=== PATIENT | male | born 1970 | race Caucasian/White ===

== ENCOUNTER 2020-01-02 15:27 | Emergency (ER) | payer BC, SELFPAY ==
--- NOTE | ~2020-01-02 | CT_ITS ---
EXAMINATION: CT brain wo con INDICATION: Headache COMPARISON: None TECHNIQUE: Standard unenhanced head CT. The dose-length product (DLP) was 681.00 mGy-cm. The mA was a djusted according to patient size. Iterative reconstruction technique was employed. FINDINGS: There is no intracranial hemorrhage, acute infarction, or abnormal mass lesion. The ventric les are normal. There is no abnormal mass effect or midline shift. The tinsley-white matter differentiat ion is normal. The basal cisterns are patent. The orbits are normal. The paranasal sinuses, mastoids and calvarium are normal. IMPRESSION: 1. No acute intracranial abnormality. Reviewed, dictated and finalized at location A.
[2020-01-02 15:31] VITALS: BP 135/94; PULSE 76; RESP 18; TEMP 36.3; O2SAT 100
[2020-01-02 15:47] LABS: Basophils Percent Auto 0.3 % (0.2-1.2); Eosinophils Percent Auto 0.1 % (0-4.4); Hematocrit 46.5 % (42.0-52.0); Hemoglobin 15.4 g/dL (14.0-18.0); Immature Granulocyte Absolute 0.03 K/mm3 (0.00-0.031); Immature Granulocyte Percent A 0.3 % (0-0.5); Lymphocytes Absolute Auto 1.68 K/mm3 (0.9-3.2); Mean Corpuscular HGB Conc 33.1 g/dl (32-36); Mean Corpuscular Hemoglobin 26.6 pg (26-34); Mean Corpuscular Volume 80.3 fl (80-100); Mean Platelet Volume 9.9 fl (7.4-10.4); Monocytes Absolute Auto 0.4 K/mm3 (0.1-0.6); Monocytes Percent Auto 4.5 % (2.6-8.5); Neutrophils Absolute Auto 6.7 K/mm3 (1.3-6.7); Neutrophils Percent Auto 75.8 % (45.5-73.1); Platelet Count Result 285 k/mm3 (150-375); Red Blood Count 5.79 M/mm3 (4.6-6.20); Red Cell Distribution Width 14.1 % (11.5-14.5); White Blood Count 8.8 K/mm3 (4.5-10.0)
[2020-01-02 15:57] LABS: Alanine Aminotransferase 33 U/L (4-50); Albumin Level 5.2 g/dL (3.5-5.1); Alkaline Phosphatase 52 U/L (38-126); Aspartate Amino Transferase 32 U/L (17-59); Bilirubin,Total 0.7 mg/dL (0.2-1.3); Blood Urea Nitrogen 14 mg/dL (9-20); Calcium 9.8 mg/dL (8.4-10.2); Carbon Dioxide 28 mmol/L (22-30); Chloride 103 mmol/L (98-107); Estimated CRCL calculation 97 ml/min; Estimated Glomerular Filt Rate > 60; Glucose 113 mg/dL (75-110); Lipase 131 U/L (23-300); Potassium 3.9 mmol/L (3.4-5.0); Sodium 138 mmol/L (137-145)
[2020-01-02 19:46] VITALS: BP 129/87; PULSE 72; RESP 18; O2SAT 100
--- NOTE | 2020-01-02 20:08 | ED.HA ---
HPI - Headache General Chief Complaint: Headache <NATASHA Vital Last Filed: 01/02/20 20:12> Stated Complaint: headache/ nausea <NATASHA Vital Last Filed: 01/02/20 20:12> Time Seen by Provider: 01/02/20 19:40 <NATASHA Vital Last Filed: 01/02/20 20:12> Source: patient <NATASHA Vital Last Filed: 01/02/20 20:12> Mode of arrival: ambulatory <NATASHA Vital Last Filed: 01/02/20 20:12> Limitations: other (Hearing impairment) <NATASHA Vital Last Filed: 01/02/20 20:12> History of Present Illness HPI Narrative: This is a 49-year-old male that presents the emergency department for headache since this morning. Reports he took an anti-inflammatory this morning with some relief. Has continued to have a headache since. Has not taken any other medication for this. Reports photosensitivity and nausea. Denies fever, vision changes, vomiting, numbness or weakness. <NATASHA Vital Last Filed: 01/02/20 20:12> Related Data Home Medications: Home Medications Medication Instructions Recorded Confirmed No Home Medications 01/02/20 01/02/20 <NATASHA Vital Last Filed: 01/02/20 20:12> Allergies/Adverse Reactions: Allergies Allergy/AdvReac Type Severity Reaction Status Date / Time No Known Allergies Allergy Unknown Verified 01/02/20 15:28 <NATASHA Vital Last Filed: 01/02/20 20:12> Review of Systems Review of Systems: Narrative: CONSTITUTIONAL: Denies fever EYES: Denies visual changes GASTROINTESTINAL: Reports nausea. Denies vomiting NEUROLOGIC: Reports headache. Denies numbness, or weakness. <NATASHA Vital Last Filed: 01/02/20 20:12> All systems reviewed & are unremarkable except as noted in HPI and below <NATASHA Vital Last Filed: 06/29/20 20:12> PMFSH Past Medical History Medical History: Medical History (Updated 01/02/20 @ 21:12 by Emily Epperson MD) History of hearing loss <Aminta Cam PA-C - Last Filed: 01/02/20 20:12> Family History Family History: Family History (Updated 10/07/18 @ 09:58 by DOCTOR UNKNOWN) Mother Family history of malignant neoplasm Grandparent Family history of coronary artery disease <Aminta Cam PA-C - Last Filed: 01/02/20 20:12> Social History Social History: Social History (Updated 01/02/20 @ 20:10 by Aminta Cam PA-C) Smoking status: Former smoker Alcohol intake: never Substance use: never Gender identity (if verbalized by the patient): Male <Aminta Cam PA-C - Last Filed: 01/02/20 20:12> Exam Narrative: Exam Narrative: GENERAL: Well-appearing, well-nourished, and in no acute distress. HEAD: Normocephalic, atraumatic. EYES: PERRLA and EOMI. ENT: Nares clear, no rhinorrhea or epistaxis. Mucous membranes moist. Oropharynx without tonsillar hypertrophy exudate or other lesions. Bilateral TMs pearly tinsley non-bulging NECK: Supple. No adenopathy or masses. CHEST: Clear to auscultation. No respiratory distress. No wheezes rales or rhonchi HEART: Regular rate and rhythm. No murmur heard. Normal peripheral pulses. EXTREMITIES: Normal range of motion. No edema. SKIN: Warm, dry, no rash. NEURO: No focal deficits. Alert and oriented x3. 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 [id number] with the patient for 15 minutes. His headache started at 3:30 in the morning. His gave him a blue pill. He went to work anyway. The headache became worse. 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 The headache was 10 out of 10 at worst. Now it is 4 out of 10, and he is ready to go home. He received IV fluids and IV Tylenol. Emily Epperson <Emily Epperson MD - Last Filed: 01/02/20 21:15> Vital Signs Vital signs: Vital Signs
[2020-01-02] MEDS: KETOROLAC 30 MG/ML VIAL (*BKC) IV PUSH (20:19)
[2020-01-02] MEDS: SODIUM CHLORIDE 0.9% IV 1,000 ML 999 ML IV CONT (20:19)
[2020-01-02] MEDS: METOCLOPRAMIDE HCL INJ 10 MG/2 ML VIAL IV PUSH (20:20)
[2020-01-02 21:24] VITALS: BP 122/79; PULSE 69; RESP 18; O2SAT 99
== END 2020-01-02 21:25 | disposition home or self-care (01) ==
PROVIDERS: Emergency Medicine; Emergency Provider Emergency Medicine
DX: R51 Headache (principal); Z87.891 Personal history of nicotine dependence; H91.90 Unspecified hearing loss, unspecified ear
CPT/HCPCS: 36415; 70450; 80053; 83690; 85025; 96365; 96375; 99284; J0131; J1200; J1885; J2765; J7030

== ENCOUNTER 2020-04-25 10:21 | Outpatient (CLI) | payer BC, MEDICAID, SELFPAY | END 2020-04-25 10:22 | disposition home or self-care (01) | PROVIDERS: Visit Provider Clinical Nurse Specialist | DX: H90.3 Sensorineural hearing loss, bilateral (principal) | CPT/HCPCS: 92557; 92567 ==

== ENCOUNTER 2020-06-13 07:57 | Outpatient (RCR) | payer MEDICAID, SELFPAY | END 2020-06-13 23:59 | disposition home or self-care (01) | LOC: ANHAUDIO 07:57 | PROVIDERS: PCP Clinical Nurse Specialist; Visit Provider Clinical Nurse Specialist | DX: Z46.1 Encounter for fitting and adjustment of hearing aid (principal) | CPT/HCPCS: V5160; V5261 ==

== ENCOUNTER 2020-11-30 19:53 | Emergency (ER) | payer MEDICAID, SELFPAY ==
--- NOTE | ~2020-11-30 | CT_ITS ---
EXAMINATION: CT BRAIN W/O DATE: 11/30/2020 20:58 INDICATION: Altered mental status TECHNIQUE: Computed tomography (CT) of the head was performed without intravenous contrast. The dose- length product was 681.00 mGy-cm. Automated exposure control and iterative reconstruction technique w ere employed. COMPARISON: No prior studies for comparison. FINDINGS: Normal brain parenchymal volume for age. Normal tinsley-white differentiation. No acute intrac ranial hemorrhage, infarction, mass or mass effect. No ventriculomegaly or midline shift. Midline sagittal images demonstrate a normal corpus callosum, c raniovertebral junction and sella turcica. Basilar cisterns are patent. Paranasal sinuses and mastoids are pneumatized. No depressed skull fractures. IMPRESSION: 1. No acute intracranial abnormality. Reviewed, dictated and finalized at location A.
[2020-11-30 19:59] VITALS: BP 137/79; PULSE 86; RESP 20; TEMP 37; O2SAT 98
[2020-11-30 20:46] LABS: Basophils Percent Auto 0.3 % (0.2-1.2); Eosinophils Absolute Auto 0.1 K/mm3 (0-0.3); Eosinophils Percent Auto 0.9 % (0-4.4); Hemoglobin 15.1 g/dL (14.0-18.0); Immature Granulocyte Absolute 0.01 K/mm3 (0.00-0.031); Immature Granulocyte Percent A 0.2 % (0-0.5); Lymphocytes Absolute Auto 2.45 K/mm3 (0.9-3.2); Lymphocytes Percent Auto 38.3 % (18.3-44.2); Mean Corpuscular HGB Conc 32.8 g/dl (32-36); Mean Corpuscular Hemoglobin 26.9 pg (26-34); Mean Corpuscular Volume 81.9 fl (80-100); Mean Platelet Volume 9.7 fl (7.4-10.4); Monocytes Absolute Auto 0.7 K/mm3 (0.1-0.6); Monocytes Percent Auto 10.5 % (2.6-8.5); Neutrophils Absolute Auto 3.2 K/mm3 (1.3-6.7); Neutrophils Percent Auto 49.8 % (45.5-73.1); Platelet Count Result 284 k/mm3 (150-375); Red Blood Count 5.62 M/mm3 (4.6-6.20); Red Cell Distribution Width 13.8 % (11.5-14.5); White Blood Count 6.4 K/mm3 (4.5-10.0)
[2020-11-30 21:01] LABS: Ethanol < 10 mg/dL (<10)
[2020-11-30 21:02] LABS: Alanine Aminotransferase 30 U/L (4-50); Albumin Level 4.6 g/dL (3.5-5.1); Alkaline Phosphatase 42 U/L (38-126); Anion Gap 6 mmol/L (8-16); Aspartate Amino Transferase 39 U/L (17-59); Bilirubin,Total 0.5 mg/dL (0.2-1.3); Blood Urea Nitrogen 17 mg/dL (9-20); Calcium 9.6 mg/dL (8.4-10.2); Carbon Dioxide 31 mmol/L (22-30); Chloride 104 mmol/L (98-107); Estimated CRCL calculation 63 ml/min; Estimated Glomerular Filt Rate > 60; Glucose 105 mg/dL (75-110); Potassium 3.8 mmol/L (3.4-5.0); Sodium 141 mmol/L (137-145)
[2020-11-30 21:20] LABS: Add Urine Microscopic? YES; Appearance Urine Clear (Clear); Bilirubin Urine Negative (Negative); Blood Urine Negative (Negative); Color Urine Yellow (Yellow); Glucose Urine UA Negative (Negative); Ketones Urine Negative (Negative); Leukocyte Esterase Ur Negative LEU/UL (Negative); Mucus Urine Rare /lpf; Nitrate Urine Negative (Negative); Protein Urine Negative (Negative); RBC Urine 0-2 /hpf (0-2); Specific Grav Ur 1.016 (1.001-1.035); WBC Urine 0-3 /hpf
[2020-11-30 21:32] LABS: Thyroid Stimulating Hormone 0.539 uIU/mL (0.465-4.680)
--- NOTE | 2020-11-30 21:32 | ED.PSYCH ---
HPI - Psych General Chief Complaint: Psychiatric Symptoms Stated Complaint: ams, rule out si Time Seen by Provider: 11/30/20 20:01 History of Present Illness HPI Narrative: Patient is a 50-year-old male who presents ER with concerns for psychiatric issues. Patient's called EMS for transport. She reports that he has been sleeping last over the last few days. He has been speaking about things that she feels do not make sense. He has been paranoid about people following him. She reports she has been telling stories about how his mother had and then his stepfather committed suicide. Patient denies any suicidal ideation or homicidal ideation currently. Denies that he is hearing voices or seeing things that are not actually there. Denies drug use. He does have a notebook that is filled with random scribbles of scripture. Related Data Home Medications Medication Instructions Recorded Confirmed No Home Medications 01/02/20 01/02/20 Allergies Allergy/AdvReac Type Severity Reaction Status Date / Time No Known Allergies Allergy Unknown Verified 01/02/20 15:28 Review of Systems Review of Systems: All systems reviewed & are unremarkable except as noted in HPI and below Constitutional: Constitutional: Denies chills, Denies fever(s) and Denies weakness ENT: Denies nasal congestion and Denies sore throat Cardiovascular: Cardiovascular: Denies chest pain, Denies rapid heart rate and Denies radiating jaw, neck or arm pain Respiratory: Respiratory: Denies cough and Denies dyspnea Psychiatric: Psychiatric: Denies anxiety, Denies depression and Denies homicidal ideation PMFSH Past Medical History Medical History (Updated 11/30/20 @ 22:35 by Amaury Espinosa MD) History of hearing loss Surgical History Surgical History (Updated 11/30/20 @ 21:36 by Amaury Espinosa MD) No pertinent past surgical history Family History Family History (Updated 10/07/18 @ 09:58 by DOCTOR UNKNOWN) Mother Family history of malignant neoplasm Grandparent Family history of coronary artery disease Social History Social History (Updated 01/02/20 @ 20:10 by Aminta Cam PA-C) Smoking status: Former smoker Alcohol intake: never Substance use: never Gender identity (if verbalized by the patient): Male Exam Narrative: Exam Narrative: GENERAL: Well-appearing, well-nourished, and in no acute distress. HEAD: Normocephalic, atraumatic. EYES: PERRL and EOMI. CHEST: Clear to auscultation. No respiratory distress. HEART: Regular rate and rhythm. Normal peripheral pulses. ABDOMEN: Soft, nontender, nondistended. EXTREMITIES: Normal range of motion. No edema. SKIN: Warm, dry, no rash. NEURO: Alert and oriented x3. PSYCH: Normal mood and affect. Does not seem to be responding to internal stimuli at this moment. No SI/HI. Course Course Emergency Course: Patient has been calm and cooperative. He is not endorsing any suicidal ideation or homicidal ideation. He is not displayed any behavior that would indicate that he is a risk to himself or others. He has not been acting paranoid. Crisis has been contacted and states they are not coming out patient's who are not SI/HI or not considered a possible danger to themselves/others. Vital Signs Vital signs: Vital Signs Temperature 98.6 F 11/30/20 19:59 Pulse Rate 86 11/30/20 19:59 Respiratory Rate 20 11/30/20 19:59 Blood Pressure 137/79 11/30/20 19:59 Pulse Oximetry 98 11/30/20 19:59 Temperature 98.6 F 11/30/20 19:59 Pulse Rate 86 11/30/20 19:59 Respiratory Rate 20 11/30/20 19:59 Blood Pressure 137/79 11/30/20 19:59 Pulse Oximetry 98 11/30/20 19:59 MDM - Psych Lab Data Result diagrams: 11/30/20 20:40 11/30/20 20:40 Labs: Lab Results 11/30/20 11/30/20 11/30/20 Range/Units 20:40 20:40 20:40 WBC 6.4 (4.5-10.0) K/mm3 RBC 5.62 (4.6-6.20) M/mm3 Hgb 15.1 (14.0-18.0) g/dL Hc
[2020-11-30 21:55] LABS: Amphetamine Screen Urine Negative (Negative); Barbiturate Screen Urine Negative (Negative); Benzodiazepines Screen Urine Negative (Negative); Cannabinoid Screen Urine Negative (Negative); Cocaine Screen Urine Negative (Negative); Methadone Screen Urine Negative (Negative); Opiate Screen Urine Negative (Negative); Phencyclidine Screen Urine Negative (Negative)
--- NOTE | 2020-11-30 22:54 | PC.NURSE ---
spoke with Nelly from crisis, she states with pt denying SI/HI there would be slim to none chance of having a in person interventionalist come to the hospital.
--- NOTE | 2020-11-30 23:01 | PC.NURSE ---
2300 patient's called to get update on patient. Informed her that the patient is up for discharge and has been medically cleared.
[2020-11-30 23:15] VITALS: BP 135/96; PULSE 96; RESP 14; O2SAT 98
== END 2020-11-30 23:13 | disposition home or self-care (01) ==
PROVIDERS: Emergency Provider Emergency Medicine; PCP Internal Medicine
DX: F99 Mental disorder, not otherwise specified (principal); Z87.891 Personal history of nicotine dependence
CPT/HCPCS: 36415; 70450; 80053; 80307; 81001; 84443; 85025; 99284

== ENCOUNTER 2021-01-02 12:38 | Outpatient (RCR) | payer MEDICAID, SELFPAY | END 2021-01-02 23:59 | disposition home or self-care (01) | LOC: ANHAUDIO 12:38 | PROVIDERS: PCP Internal Medicine; Visit Provider Internal Medicine | DX: Z46.1 Encounter for fitting and adjustment of hearing aid (principal) | CPT/HCPCS: 99199 ==

== ENCOUNTER 2021-05-04 11:54 | Outpatient (CLI) | payer BC, SELFPAY ==
--- NOTE | ~2021-05-04 | MR_ITS ---
EXAMINATION: MR brain/brain stem wo/w con EXAM DATE: 05/04/2021 13:04 INDICATION: Z71.1 - Person with feared health complaint in whom no di... Headache, neurological defic its, hearing difficulties. TECHNIQUE: Magnetic resonance imaging (MRI) of the brain/brain stem obtained without contrast. Sagit carrie T1, axial diffusion, gradient echo (T2*), T1, T2, FLAIR sequences obtained. Patient was then inj ected with 10 cc intravenous Multihance contrast. Axial and coronal postcontrast T1 weighted sequence s obtained. Correlation is made to head CT 11/30/2020. FINDINGS: Nodule of soft tissue incompletely imaged within the superficial lobe of the left parotid g land, differential diagnosis including primary parotid neoplasm and less likely pathologically enlarg ed intraparotid lymph node. This demonstrates enhancement, measures up to about 1.5 cm. No other kristin ons of abnormal enhancement. There are no areas of restricted diffusion to suggest acute infarction. There is no acute hemorrhage seen on the T2*, a hemosiderin sensitive sequence. No intraparenchymal brain mass. The ventricles a re normal in size. There are no extra-axial collections. Flow voids are seen in the cerebral arteri es on the T2-weighted sequences consistent with their expected patency. The orbits are unremarkable. Soft tissue is unremarkable. Mild right maxillary sinus mucoperiosteal thickening. IMPRESSION: 1. 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 Con affirmative action officer soft tissue neck ultrasound, CT neck with contrast, and/or ENT consult. 2. Otherwise unremarkable brain MRI. Reviewed, dictated and finalized at location A. IMPRESSION: 1. Incidental left parotid mass, more likely primary parotid neoplasm than enl arged lymph node. Consider soft tissue neck ultrasound, CT neck with contrast, and/or ENT consult. 2. Otherwise unremarkable brain MRI.
[2021-05-04 12:44] LABS: Estimated Glomerular Filt Rate > 60
== END 2021-05-04 11:55 | disposition home or self-care (01) ==
LOC: ANHIMG 12:12
PROVIDERS: PCP Internal Medicine; Visit Provider Internal Medicine
DX: R51.9 Headache, unspecified (principal); Z71.1 Person with feared health complaint in whom no diagnosis is made; R93.0 Abnormal findings on diagnostic imaging of skull and head, not elsewhere classified
CPT/HCPCS: 70553; A9577

== ENCOUNTER 2021-09-13 12:54 | Outpatient (RCR) | payer BC, SELFPAY | END 2021-09-13 23:59 | disposition home or self-care (01) | LOC: ANHAUDIO 12:54 | PROVIDERS: PCP Internal Medicine; Visit Provider Internal Medicine | DX: Z46.1 Encounter for fitting and adjustment of hearing aid (principal) | CPT/HCPCS: 99199 ==

== ENCOUNTER 2023-03-31 07:10 | Outpatient (RCR) | payer BC, SELFPAY | END 2023-03-31 23:59 | disposition home or self-care (01) | LOC: ANHAUDIO 07:10 | PROVIDERS: PCP Internal Medicine; Visit Provider Internal Medicine | DX: Z46.1 Encounter for fitting and adjustment of hearing aid (principal) | CPT/HCPCS: 99199 ==

== ENCOUNTER 2023-12-29 16:37 | Emergency (ER) | payer BC, SELFPAY ==
[2023-12-29 16:37] VITALS: BP 121/80; PULSE 76; RESP 16; O2SAT 99
[2023-12-29 17:01] VITALS: TEMP 36.7
[2023-12-29 17:35] LABS: Basophils Absolute Auto 0.1 K/mm3 (0.0-0.1); Basophils Percent Auto 0.7 % (0.2-1.2); Eosinophils Absolute Auto 0.1 K/mm3 (0-0.3); Eosinophils Percent Auto 0.7 % (0-4.4); Hematocrit 50.2 % (42.0-52.0); Hemoglobin 16.2 g/dL (14.0-18.0); Immature Granulocyte Absolute 0.03 K/mm3 (0.00-0.031); Immature Granulocyte Percent A 0.4 % (0-0.5); Lymphocytes Absolute Auto 2.71 K/mm3 (0.9-3.2); Lymphocytes Percent Auto 31.9 % (18.3-44.2); Mean Corpuscular HGB Conc 32.3 g/dl (32-36); Mean Corpuscular Hemoglobin 27.2 pg (26-34); Mean Corpuscular Volume 84.4 fl (80-100); Mean Platelet Volume 9.9 fl (7.4-10.4); Monocytes Absolute Auto 0.7 K/mm3 (0.1-0.6); Monocytes Percent Auto 7.9 % (2.6-8.5); Neutrophils Percent Auto 58.4 % (45.5-73.1); Platelet Count Result 302 k/mm3 (150-375); Red Blood Count 5.95 M/mm3 (4.6-6.20); Red Cell Distribution Width 14.6 % (11.5-14.5); White Blood Count 8.5 K/mm3 (4.5-10.0)
--- NOTE | 2023-12-29 17:38 | ED.GENADULT ---
HPI - General Adult General Chief complaint: Unspecified <Anamaria Caraballo MD - Last Filed: 12/30/23 11:49> Stated complaint: Psych, Fail to Thrive <Anamaria Caraballo MD - Last Filed: 12/30/23 11:49> Time Seen by Provider: 12/29/23 16:52 <Anamaria Caraballo MD - Last Filed: 12/30/23 11:49> History of Present Illness HPI narrative: Patient is a 53 year old male with history of depression, bipolar, schizophrenia here complaining of feeling very depressed. He notes he has struggled with depression for a long time, is compliant with his medications. He notes he feels more and more depressed despite taking his medications. He states that he has not been taking care of himself, not eating well. He denies SI or HI, denies attempts at self harm. Patient does note history of prior psychiatric admission, unsure of when this was, felt similar to this at that time. Despite patient saying he is taking his medications he did come in with involuntary paperwork stating he does not take his medications and is not caring for himself. <Anamaria Caraballo MD - Last Filed: 12/30/23 11:49> Related Data Home medications: Home Medications Medication Instructions Recorded Confirmed bupropion HCl 300 mg 24 hr tablet, 300 mg PO QAM 12/29/23 12/29/23 extended release quetiapine 50 mg tablet 100 mg PO HS PRN Insomnia 12/29/23 12/29/23 sertraline 50 mg tablet 50 mg PO DAILY 12/29/23 12/29/23 <Anamaria Caraballo MD - Last Filed: 12/30/23 11:49> Allergies/adverse reactions: Allergies Allergy/AdvReac Type Severity Reaction Status Date / Time No Known Allergies Allergy Unknown Verified 12/29/23 16:46 <Anamaria Caraballo MD - Last Filed: 12/30/23 11:49> Review of Systems Review of Systems: All systems reviewed & are unremarkable except as noted in HPI and below <Anamaria Caraballo MD - Last Filed: 12/30/23 11:49> PMFSH Past Medical History Medical History: Medical History (Updated 12/30/23 @ 04:23 by Tali Miller MD) History of hearing loss Parotid mass <Anamaria Caraballo MD - Last Filed: 12/30/23 11:49> Surgical History Surgical History: Surgical History No pertinent past surgical history <Anamaria Caraballo MD - Last Filed: 12/30/23 11:49> Family History Family History: Family History Mother Family history of malignant neoplasm Grandparent Family history of coronary artery disease <Anamaria Caraballo MD - Last Filed: 12/30/23 11:49> Social History Social History: Social History Smoking status: Former smoker Alcohol intake: never Substance use: never Substance use type: does not use Gender identity (if verbalized by the patient): Male <Anamaria Caraballo MD - Last Filed: 12/30/23 11:49> Exam Narrative: GENERAL: Well-appearing, well-nourished, and in no acute distress. HEAD: Normocephalic, atraumatic. EYES: PERRLA and EOMI. ENT: Nares clear. Mucous membranes moist. NECK: Supple. CHEST: Clear to auscultation. No respiratory distress. HEART: Regular rate and rhythm. Normal peripheral pulses. ABDOMEN: Soft, nontender, nondistended. EXTREMITIES: Normal range of motion. No edema. SKIN: Warm, dry, no rash. NEURO: No focal deficits. Alert and oriented x3. PSYCH: Flat affect, withdrawn. <Anamaria Caraballo MD - Last Filed: 12/30/23 11:49> Course Course Emergency Course: Chart review performed. Patient here with worsening depressions. Told nursing he has not been taking his pills as prescribed. Patient seen evaluated, nontoxic appearing, alert, oriented, flat affect and withdrawn. He seems to have decompensated in terms of his mental health. He does follow with a psychiatrist of chest not. He denies any physical symptoms. Psychiatric orders have been placed, anticipate discussion with [place] services. Patient agreeable to workup an
[2023-12-29 17:46] LABS: Acetaminophen < 10 ug/mL (10-30); Ethanol < 10 mg/dL (<10); Salicylate < 1.0 mg/dL (2-20)
[2023-12-29 17:51] LABS: Alanine Aminotransferase 35 U/L (6-50); Albumin Level 4.5 g/dL (3.5-5.1); Alkaline Phosphatase 61 U/L (38-126); Anion Gap 9 mmol/L (4-12); Aspartate Amino Transferase 29 U/L (17-59); Bilirubin,Total 0.6 mg/dL (0.2-1.3); Blood Urea Nitrogen 22 mg/dL (9-20); Calcium 9.4 mg/dL (8.4-10.2); Carbon Dioxide 24 mmol/L (22-30); Chloride 108 mmol/L (98-107); Estimated CRCL calculation 73 ml/min; Estimated Glomerular Filt Rate > 60; Glucose 114 mg/dL (65-110); Potassium 3.8 mmol/L (3.4-5.0); Sodium 141 mmol/L (137-145)
[2023-12-29 18:07] LABS: Influenza A QL RT-PCR Negative (Negative); Influenza B QL RT-PCR Negative (Negative); RSV RNA, RT-PCR Negative (Negative); SARS-CoV-2 RNA PCR Negative (Negative)
--- NOTE | 2023-12-29 18:07 | PC.NURSE ---
Patient has refused to urinate after multiple requests. patient states that he just can not go patient withdrawn with flat affect. now will be straight cathing to get urine.
[2023-12-29 18:26] LABS: Appearance Urine Clear (Clear); Bilirubin Urine Negative (Negative); Blood Urine Negative (Negative); Color Urine Yellow (Yellow); Glucose Urine UA Negative (Negative); Ketones Urine Negative (Negative); Leukocyte Esterase Ur Negative LEU/UL (Negative); Nitrate Urine Negative (Negative); Protein Urine Negative (Negative); Specific Grav Ur 1.025 (1.001-1.035)
[2023-12-29 18:41] LABS: Amphetamine Screen Urine Negative (Negative); Barbiturate Screen Urine Negative (Negative); Benzodiazepines Screen Urine Negative (Negative); Cannabinoid Screen Urine Negative (Negative); Cocaine Screen Urine Negative (Negative); Methadone Screen Urine Negative (Negative); Opiate Screen Urine Negative (Negative); Phencyclidine Screen Urine Negative (Negative)
[2023-12-29 18:43] LABS: Add Urine Microscopic? NO
--- NOTE | 2023-12-29 18:51 | PC.NURSE ---
phone call made to Es at [facility]. left voicemail to call back to [facility] as soon as she can.
--- NOTE | 2023-12-29 22:21 | PC.NURSE ---
1918 - spoke with Es with [facility] about the patient being medically cleared for psychiatric evaluation 2215- spoke with Efe with [facility] about request of family to place the patient at [facility]. Efe has talked to Jamison at [facility] Intake, who requests the chart to be faxed over. contact information intake - phone number : [phone]
[2023-12-29 22:47] VITALS: BP 103/72; PULSE 70; RESP 14; TEMP 36.3; O2SAT 98
--- NOTE | 2023-12-29 23:12 | PC.NURSE ---
chart faxed to [facility].
--- NOTE | 2023-12-30 00:26 | PC.NURSE ---
MATT Mercedesia contacted to ask questions about patient status, update.
--- NOTE | 2023-12-30 01:20 | PC.NURSE ---
[place] [address] Adilson Pritchard Nurse to Nurse phone number for report [phone] - they will give you bed assignment [phone] Michelle with questions
--- NOTE | 2023-12-30 01:32 | PC.NURSE ---
Thalia @ [facility] [phone] called to update this er staff of patient information/ room 102 bed RN to RN report Unspecified Depressive Disorder - Per Dr. Adilson Pritchard
--- NOTE | 2023-12-30 01:48 | PC.NURSE ---
nurse to nurse to miri @ [facility]
[2023-12-30 04:25] VITALS: BP 134/78; PULSE 68; RESP 16; O2SAT 98
== END 2023-12-30 05:08 ==
PROVIDERS: Emergency Provider Student in an Organized Health Care Education/Training Program; PCP Internal Medicine
DX: F32.A Depression, unspecified (principal); Z20.822 Contact with and (suspected) exposure to COVID-19; Z79.899 Other long term (current) drug therapy; Z87.891 Personal history of nicotine dependence
CPT/HCPCS: 36415; 80053; 80307; 81003; 84443; 85025; 87637; 99285

== ENCOUNTER 2025-04-19 10:16 | Emergency (ER) | payer BC, SELFPAY ==
--- OUTSIDE RECORDS SUMMARY | 2024-11-29 10:20 | XMS_ITS ---
Author Organization [facility] Address [address] [place] [address] Care Team Providers Care Attendant Honor Bar Name Role Phone Shauna Muhammad Primary Care Provider Nicolette Link [phone] REASON FOR VISIT transfer from [facility] 40 mins Social History Sex Assigned At : Social History Observation Description Sex Assigned At Male Encounters Encounter Location Date Provider Diagnosis [address] [place] [address] 11/29/2024 Nicolette Link Plan Of Treatment No Information Progress Notes * Antoni ROGERSDOB:1970 ( 54 yo M)Acc No.[id number]:11/29/2024 UNLOCKED PROGRESS NOTE Patient: Antoni MOYA Provider: Gena Link, MSN, MANAGER BUSINESS BANKING, DAIRY BACTERIOLOGIST-C :1970 A ge:54 Y S ex:Male Date:11/29/2024 [id number] Pcp:Shauna Muhammad Subjective: * Chief Complaints: * 1 . [facility] from [facility] 40 mins. * Medical History: Objective: * Vitals: Assessment: Plan: * Treatment: * * Electronic signature of Dev Link , [id number] on 04/19/2025 at 12:00 PM CDT Sign off status: Pending * Provider: Gena Link, СВЕТЛАНА, MANAGER BUSINESS BANKING, DAIRY BACTERIOLOGIST-C Date: 0 11/29/2024 Generated for Toni flores/Glenny/Misty on: 1 12:00 PM CDT
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
[2025-04-19 10:24] VITALS: BP 101/69; PULSE 76; RESP 16; TEMP 36.6; O2SAT 99
[2025-04-19 10:54] LABS: Hematocrit 49.8 % (42.0-52.0); Hemoglobin 16.3 g/dL (14.0-18.0); Immature Granulocyte Percent A 0.3 % (0-0.5); Lymphocytes Absolute Auto 1.92 K/mm3 (0.9-3.2); Mean Corpuscular HGB Conc 32.7 g/dl (32-36); Mean Corpuscular Hemoglobin 26.7 pg (26-34); Mean Corpuscular Volume 81.6 fl (80-100); Nucleated Red Blood Cells Absolute Auto 0.000 K/mm3 (0.0-0.012); Nucleated Red Blood Cells Perc 0.0 % (0.0-0.2); Platelet Count Result 267 k/mm3 (150-375); Red Blood Count 6.10 M/mm3 (4.6-6.20); White Blood Count 6.3 K/mm3 (4.5-10.0)
[2025-04-19 11:08] LABS: Acetaminophen < 10 ug/mL (10-30); Salicylate < 1.0 mg/dL (2-20)
[2025-04-19 11:30] LABS: Influenza A QL RT-PCR Negative (Negative); Influenza B QL RT-PCR Negative (Negative); RSV RNA, RT-PCR Negative (Negative); SARS-CoV-2 RNA PCR Negative (Negative)
[2025-04-19 11:35] LABS: Thyroid Stimulating Hormone Reflex 0.775 uIU/mL (0.465-4.68)
[2025-04-19 11:35] LABS: Alanine Aminotransferase 50 U/L (6-50); Albumin Level 4.7 g/dL (3.5-5.1); Alkaline Phosphatase 57 U/L (38-126); Anion Gap 9 mmol/L (4-12); Aspartate Amino Transferase 34 U/L (17-59); Bilirubin,Total 1.0 mg/dL (0.2-1.3); Blood Urea Nitrogen 15 mg/dL (9-20); Calcium 9.7 mg/dL (8.4-10.2); Carbon Dioxide 27 mmol/L (22-30); Chloride 102 mmol/L (98-107); Estimated CRCL calculation 77 ml/min; Estimated Glomerular Filt Rate > 60; Glucose 110 mg/dL (65-110); Potassium 4.1 mmol/L (3.4-5.0); Sodium 138 mmol/L (137-145); Total Protein 7.6 g/dL (6.3-8.2)
--- OUTSIDE RECORDS SUMMARY | 2025-04-19 12:00 | XMS_ITS | Patient Health Record ---
Author Organization [facility] Address [address] [place] [address] Care Team Providers Care Compliance Professional Name Role Phone LuannShauna scott Primary Care Provider Nicolette Link Unavailable [phone] Allergies No Known Allergies Reason For Referral Reason Therapy Diagnosis 1 Bipolar 1 disorder, depressed (F31.9) Referral Organization Pending sale to [facility] Referring Provider First Name Nicolette Referring Provider Last Name Nikolay Referring Provider Speciality Psychiatry Referred Provider Specialty Behavioral [facility] General Notes Nicolette Link 09:31:37 AM > please refer. hx of trauma. Clinical Notes Jim Mistry 02/01/2025 12:38:22 PM > Left voicemail messageFidelia McKayla A 02/28/2025 02:42:36 PM > Technical Artist left voicemail messageFidelia McKayla A 03/08/2025 09:36:16 AM > letter sent in mail, close 03/22 if not heard back Referral Priority Routine Medications Medication SIG (Take, Route, Frequency, Duration) [...] a few years ago - parents nearly phjq-cc-uvsw, brother, grandparents. Education- Completed 2 years of college Occupation- On disability Legal History- None Spiritual Affiliation- Mormonism Other Social History - in 2014 Lives with and seven sons, one of which has medical special needs - - - - - - - - - - - ALCOHOL/DRUG HISTORY - None - - - - - - - - - - - PAST PSYCHIATRIC HISTORY Psychiatric Diagnosis(es) - Bipolar disorder, schizophrenia, depression Inpt Psych Hospitalizations - Multiple hospitalizations at [facility] for SI and being a danger to [...] a few years ago - parents nearly jiqf-ip-amgw, brother, grandparents. Education- Completed 2 years of college Occupation- On disability Legal History- None Spiritual Affiliation- Mormonism Other Social History - in 2014 Lives with and seven sons, one of which has medical special needs - - - - - - - - - - - ALCOHOL/DRUG HISTORY - None - - - - - - - - - - - PAST PSYCHIATRIC HISTORY Psychiatric Diagnosis(es) - Bipolar disorder, schizophrenia, depression Inpt Psych Hospitalizations - Multiple hospitalizations at [facility] for SI and being a danger to [...] a few years ago - parents nearly kevi-et-ikif, brother, grandparents. Education- Completed 2 years of college Occupation- On disability Legal History- None Spiritual Affiliation- Mormonism Other Social History - in 2014 Lives with and seven sons, one of which has medical special needs - - - - - - - - - - - ALCOHOL/DRUG HISTORY - None - - - - - - - - - - - PAST PSYCHIATRIC HISTORY Psychiatric Diagnosis(es) - Bipolar disorder, schizophrenia, depression Inpt Psych Hospitalizations - Multiple hospitalizations at [facility] for SI and being a danger to [...] a few years ago - parents nearly bysb-oz-nyoc, brother, grandparents. Education- Completed 2 years of college Occupation- On disability Legal History- None Spiritual Affiliation- Mormonism Other Social History - in 2014 Lives with and seven sons, one of which has medical special needs - - - - - - - - - - - ALCOHOL/DRUG HISTORY - None - - - - - - - - - - - PAST PSYCHIATRIC HISTORY Psychiatric Diagnosis(es) - Bipolar disorder, schizophrenia, depression Inpt Psych Hospitalizations - Multiple hospitalizations at [facility] for SI and being a danger to himself (not thriving) Suicide Attempt(s) - Denies - - - - - - - - - - - FAMILY PSYCHIATRIC HISTORY - Reports Hx of mental health problems but doesn't know Dx - - - - - - - - - - - ADDITIONAL SOCIAL HISTORY 09/30/2023: PERSONAL BACKGROUND HISTORY Describe childhood- I don't know Abuse/Trauma- Several deaths in family in a short amount of time a few years ago - parents nearly ydkb-eh-rcpm, brother, grandparents. Education- Completed 2 years of college Occupation- Working full-time Legal History- None Spiritual Affiliation- Mormonism Other Social History - in 2014 Lives with and seven sons, one of which has medical special needs ALCOHOL/DRUG HISTORY - None PAST PSYCHIATRIC HISTORY Past Psychiatrist or Therapist - can't remember name Psychiatric Diagnosis(es) - Bipolar disorder, schizophrenia, depression Past Psychiatric Medications - can't remember Inpt Psych Hospitalizations - Multiple hospitalizations at [facility] for SI and being a danger to himself (not thriving) Suicidal Ideation Hx - Endorsees Suicide Attempt(s) - Denies Homicidal Ideation - Denies Self-Injury/High Risk Bx - Denies FAMILY PSYCHIATRIC HISTORY - Reports Hx of mental health problems but doesn't know Dx ADDITIONAL SOCIAL HISTORY 09/30/2023: PERSONAL BACKGROUND HISTORY Describe childhood- I don't know Abuse/Trauma- Several deaths in family in a short amount of time a few years ago - parents nearly zdxu-ve-kmcq, brother, grandparents. Education- Completed 2 years of college Occupation- Working full-time Legal History- None Spiritual Affiliation- Mormonism Other Social History - in 2014 Lives with and seven sons, one of which has medical special needs ALCOHOL/DRUG HISTORY - None PAST PSYCHIATRIC HISTORY Past Psychiatrist or Therapist - Click or tap here to enter text. Psychiatric Diagnosis(es) - Bipolar disorder, schizophrenia, depression Past Psychiatric Medications - Click or tap here to enter text. Inpt Psych Hospitalizations - Multiple hospitalizations at [facility] for SI and being a danger to himself (not thriving) Suicidal Ideation Hx - Endorsees Suicide Attempt(s) - Denies Homicidal Ideation - Denies Self-Injury/High Risk Bx - Denies FAMILY PSYCHIATRIC HISTORY - Reports Hx of mental health problems but doesn't know Dx ADDITIONAL SOCIAL HISTORY 09/30/2023: PERSONAL BACKGROUND HISTORY Describe childhood- I don't know Abuse/Trauma- Several deaths in family in a short amount of time a few years ago - parents nearly pawu-gr-sfnc, brother, grandparents. Education- Completed 2 years of college Occupation- Working full-time Legal History- None Spiritual Affiliation- Mormonism Other Social History - in 2014 Lives with and seven sons, one of which has medical special needs ALCOHOL/DRUG HISTORY - None PAST PSYCHIATRIC HISTORY Past Psychiatrist or Therapist - Click or tap here to enter text. Psychiatric Diagnosis(es) - Bipolar disorder, schizophrenia, depression Past Psychiatric Medications - Click or tap here to enter text. Inpt Psych Hospitalizations - Multiple hospitalizations at [facility] for SI and being a danger to himself (not thriving) Suicidal Ideation Hx - Endorsees Suicide Attempt(s) - Denies Homicidal Ideation - Denies Self-Injury/High Risk Bx - Denies FAMILY PSYCHIATRIC HISTORY - Reports Hx of mental health problems but doesn't know Dx ADDITIONAL SOCIAL HISTORY 09/30/2023: PERSONAL BACKGROUND HISTORY Describe childhood- I don't know Abuse/Trauma- Several deaths in family in a short amount of time a few years ago - parents nearly evug-ft-mlfw, brother, grandparents. Education- Completed 2 years of college Occupation- Working full-time Legal History- None Spiritual Affiliation- Mormonism Other Social History - in 2014 Lives with and seven sons, one of which has medical special needs ALCOHOL/DRUG HISTORY - None PAST PSYCHIATRIC HISTORY Past Psychiatrist or Therapist - Click or tap here to enter text. Psychiatric Diagnosis(es) - Bipolar disorder, schizophrenia, depression Past Psychiatric Medications - Click or tap here to enter text. Inpt Psych Hospitalizations - Multiple hospitalizations at [facility] for SI and being a danger to himself (not thriving) Suicidal Ideation Hx - Endorsees Suicide Attempt(s) - Denies Homicidal Ideation - Denies Self-Injury/High Risk Bx - Denies FAMILY PSYCHIATRIC HISTORY - Reports Hx of mental health problems but doesn't know Dx ADDITIONAL SOCIAL HISTORY 09/30/2023: PERSONAL BACKGROUND HISTORY Describe childhood- I don't know Abuse/Trauma- Several deaths in family in a short amount of time a few years ago - parents nearly fiwa-hq-klat, brother, grandparents. Education- Completed 2 years of college Occupation- Working full-time Legal History- None Spiritual Affiliation- Mormonism Other Social History - in 2014 Lives with and seven sons, one of which has medical special needs ALCOHOL/DRUG HISTORY - None PAST PSYCHIATRIC HISTORY Past Psychiatrist or Therapist - Click or tap here to enter text. Psychiatric Diagnosis(es) - Bipolar disorder, schizophrenia, depression Past Psychiatric Medications - Click or tap here to enter text. 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), inattentive type (F90.0) Active confirmed Problem Schizophrenia (23152743) Schizophrenia (F20.9) 01/25/20 Active confirmed Problem Overweight (318984685) Over weight (E66.3) Active confirmed Problem Major depressive disorder (583179117) MDD (major depressive disorder) (F32.9) 01/25/20 Active confirmed Problem Grief (530059407) Grief (F43.21) 09/30/19 Active confirmed Problem Bipolar disorder (84176301) Bipolar 1 disorder, depressed (F31.9) 09/30/19 Active confirmed Vital Signs Heart Rate 74 /min 04/18/2025 Temperature 97.6 degrees Fahrenheit 04/18/2025 Respiratory Rate 18 /min 04/18/2025 Oximetry 98 % 04/18/2025 Blood pressure diastolic 64 mm Hg 04/18/2025 Height 69 in 04/18/2025 Blood pressure systolic 98 mm Hg 04/18/2025 Weight 177.6 lbs 04/18/2025 BMI 26.22 kg/m2 04/18/2025 Encounters Encounter Location Date Provider Diagnosis [address] [place] [address] 01/03/2025 Nicolette Link Bipolar 1 disorder, depressed F31.9 [facility] [address] [place] [address] 01/24/2025 Nicolette Link [facility] [address] [place] [address] 02/28/2025 Nicolette Link Bipolar 1 disorder, depressed F31.9 [facility] [address] [place] [address] 03/28/2025 Nicolettesummer Link [address] [place] [address] 04/03/2025 Nicolette Link ADHD (attention deficit hyperactivity disorder), inattentive type F90.0 [facility] [address], [place] [address] 04/19/2025 Nicolette Link [facility] [place] [place] [address] 04/18/2025 Nicolette Link Over weight E66.3 ; ADHD (attention deficit hyperactivity disorder), inattentive type F90.0 and Bipolar 1 disorder, depressed F31.9 [facility] [address] [place] [address] 12/13/2024 Nicolette Link Bipolar 1 disorder, depressed F31.9 [facility] [address] [place] [address] 01/24/2025 Nicolette Link ADHD (attention deficit hyperactivity disorder), inattentive type F90.0 ; Over weight E66.3 and Bipolar 1 disorder, depressed F31.9 [facility] [place] [address] 02/28/2025 Nicolette Link Over weight E66.3 ; ADHD (attention deficit hyperactivity disorder), inattentive type F90.0 and Bipolar 1 disorder, depressed F31.9 Assessments Encounter Date Diagnosis (ICD Code) Assessment Notes Treatment Notes Treatment Clinical Notes Section Notes 12/13/2024 Bipolar 1 disorder, depressed (ICD-10 - F31.9) Continue Abilify- Take as prescribed. Reviewed purpose (mood stability), benefits, and risks - low blood pressure, metabolic syndrome with high cholesterol or high blood sugars, change in cardiac conduction, nausea, vomiting, temporary or permanent movement disorders, and akathisia. Start Wellbutrin again- was on 450mg XL and has been off for 2 weeks. Start 150 mg XL for 1 week then increase to 300mg XL daily. Discussed r/b/se- monitor for manic symptoms. [place] 600mg BID was d/c'd 2 weeks ago due to running out of the medication. Reports improvement in mobility (was shaking and dizzy) and energy since stopping this medication. Not to restart at this time. ECT starting 03/11/24 until 04/27/24 with 13 rounds of sessions. Done at [facility]. With current symptoms- restart bupropion for increase in energy/motiva tion if no improvement, may look to stimulants due to severity of depression/de creased energy and activity. 02/28/2025 Over weight (ICD-10 - E66.3) 02/28/2025 Bipolar 1 disorder, depressed (ICD-10 - F31.9) 01/24/2025 ADHD (attention deficit hyperactivity disorder), inattentive type (ICD-10 - F90.0) Stimulant education - reviewed risks including HTN, cardiac arrhythmias, sudden , stroke, seizures, ksenia, wt loss, insomnia. PDMP checked without concerns. 01/03/2025 Bipolar 1 disorder, depressed (ICD-10 - F31.9) 04/03/2025 ADHD (attention deficit hyperactivity disorder), inattentive type (ICD-10 - F90.0) 04/18/2025 Over weight (ICD-10 - E66.3) 04/18/2025 ADHD (attention deficit hyperactivity disorder), inattentive type (ICD-10 - F90.0) Stimulant education - reviewed risks including HTN, cardiac arrhythmias, sudden , stroke, seizures, ksenia, wt loss, insomnia. Continue at this time due to mild improvement in productivity/function ing reported by when I look on the cameras. Client agrees. PDMP checked without concerns. 01/24/2025 Over weight (ICD-10 - E66.3) 01/24/2025 Bipolar 1 disorder, depressed (ICD-10 - F31.9) Continue Abilify- Take as prescribed. Reviewed purpose (mood stability), benefits, and risks - low blood pressure, metabolic syndrome with high cholesterol or high blood sugars, change in cardiac conduction, nausea, vomiting, temporary or permanent movement disorders, and akathisia. [place] with tremors and no improvement in mood. ECT starting 03/11/24 until 04/27/24 with 13 rounds of sessions. Done at [facility]. 02/28/2025 ADHD (attention deficit hyperactivity disorder), inattentive type (ICD-10 - F90.0) Stimulant education - reviewed risks including HTN, cardiac arrhythmias, sudden , stroke, seizures, ksenia, wt loss, insomnia. PDMP checked without concerns. 02/28/2025 Bipolar 1 disorder, depressed (ICD-10 - F31.9) Continue Abilify- Take as prescribed. Reviewed purpose (mood stability), benefits, and risks - low blood pressure, metabolic syndrome with high cholesterol or high blood sugars, change in cardiac conduction, nausea, vomiting, temporary or permanent movement disorders, and akathisia. [place] with tremors and no improvement in mood. Start namenda for behaviors, memory concerns, obsessive actions especially r/t TV, and executive dysfunction. ECT starting 03/11/24 until 04/27/24 with 13 rounds of sessions. Done at [facility]. 04/18/2025 Bipolar 1 disorder, depressed (ICD-10 - F31.9) Continue Abilify- Take as prescribed. Reviewed purpose (mood stability), benefits, and risks - low blood pressure, metabolic syndrome with high cholesterol or high blood sugars, change in cardiac conduction, nausea, vomiting, temporary or permanent movement disorders, and akathisia. [place] with tremors and no improvement in mood. [...] with 13 rounds of sessions. Done at [facility]. 01/24/2025 Other Reasons, potential benefits, potential risks, interactions and side effects of all medications were discussed. The Patient/Guardian asked appropriate questions, appeared to understand the answers, and decided to accept the treatment and continue being followed. Alternatives and expected course without treatment were reviewed. The Patient/Guardian is aware of the need to contact the office or return for an earlier appointment if any problems or concerns arise. May also contact the 24-hour crisis hotline ([facility]), refer to the closest emergency room or call 911 if new symptoms arise of existing symptoms worsen. The Patient/Guardian is aware that this would apply to symptoms like: suicidal ideation, homicidal ideation, high risk behaviors, manic symptoms, psychotic symptoms, physical symptoms, or any other symptoms that may be dangerous to self or others. Greater than 50% of time spent on coordination and counseling where psychopharmacology as well as psychotherapeutic interventions were discussed along with review of treatments in the past. Education provided concerning need for adequate hydration. Patient/Guardian verbalized understanding of education, treatment plan and follow up. 12/13/2024 Other Reasons, potential benefits, potential risks, interactions and side effects of all medications were discussed. The Patient/Guardian asked appropriate questions, appeared to understand the answers, and decided to accept the treatment and continue being followed. Alternatives and expected course without treatment were reviewed. The Patient/Guardian is aware of the need to contact the office or return for an earlier appointment if any problems or concerns arise. May also contact the 24-hour crisis hotline ([facility]), refer to the closest emergency room or call 911 if new symptoms arise of existing symptoms worsen. The Patient/Guardian is aware that this would apply to symptoms like: suicidal ideation, homicidal ideation, high risk behaviors, manic symptoms, psychotic symptoms, physical symptoms, or any other symptoms that may be dangerous to self or others. Greater than 50% of time spent on coordination and counseling where psychopharmacology as well as psychotherapeutic interventions were discussed along with review of treatments in the past. Education provided concerning need for adequate hydration. Patient/Guardian verbalized understanding of education, treatment plan and follow up. 02/28/2025 Other Reasons, potential benefits, potential risks, interactions and side effects of all medications were discussed. The Patient/Guardian asked appropriate questions, appeared to understand the answers, and decided to accept the treatment and continue being followed. Alternatives and expected course without treatment were reviewed. The Patient/Guardian is aware of the need to contact the office or return for an earlier appointment if any problems or concerns arise. May also contact the 24-hour crisis hotline ([facility]), refer to the closest emergency room or call 911 if new symptoms arise of existing symptoms worsen. The Patient/Guardian is aware that this would apply to symptoms like: suicidal ideation, homicidal ideation, high risk behaviors, manic symptoms, psychotic symptoms, physical symptoms, or any other symptoms that may be dangerous to self or others. Greater than 50% of time spent on coordination and counseling where psychopharmacology as well as psychotherapeutic interventions were discussed along with review of treatments in the past. Education provided concerning need for adequate hydration. Patient/Guardian verbalized understanding of education, treatment plan and follow up. Plan Of Treatment No Information Insurance Providers Payer Name Payer Address Payer Phone Subscriber Number Group Number Insured Name Patient Relationship to Insured Coverage Start Date Coverage End Date [facility] [employer] Plan [address] [place] [address] [id number] 5 Antoni Rogers Self - patient is the insured 3 [facility] [address] [place] [address] [id number] 5 Antoni Rogers Self - patient is the insured Medications Administered Medication Instructions Date of Administration Dosage Notes Abilify Maintena 10/01/2023 400 mg Abilify Maintena 10/29/2023 400 mg Pt safia perla Manufact by Anne Marie Abilify Maintena 11/26/2023 400 mg Abilify Maintena 12/24/2023 400 mg Manufact by Otskatherine. Pt safia do. Medical (General) History Medical History History ICD Code high cholesterol Bipolar 1 disorder, depressed (resolved 01/25/2024) undefined Surgical History Surgery Date(Month/Year) Hospitalization History Reason Date(Month/[facility]-mental health
--- OUTSIDE RECORDS SUMMARY | 2025-04-19 12:00 | XMS_ITS | Clinical Summary ---
Author Organization [facility] Address [address] [place] [id number] Care Team Providers Care Telephone Information Supervisor Name Role Phone Deshawn Hartley MD Primary Care Provider [phone] Social History Tobacco Use Types Packs/Day Years Used Date Smoking Tobacco: Never Assessed Sex and Gender Information Value Date Recorded Sex Assigned at Not on file Legal Sex Male 10:30 AM CDT Gender Identity Not on file Sexual Orientation Not on file Plan of Treatment Health Maintenance Due Date Last Done Comments Colorectal Cancer Screening Colonoscopy (10 Years) 1968 Annual Physical 11/25/1971 Hepatitis C 1986 DTaP, Tdap and Td Vaccines ( 1 - Tdap) 11/25/1987 Hepatitis B Vaccines (1 of 3 - 19+ 3-dose series) 11/25/1987 Pneumococcal Vaccine: 50+ Years (1 of 1 - PCV) 2018 Zoster Vaccines (1 of 2) 2018 COVID-19 Vaccine (4 - 2024-2 6 season) 2025 01/28/2022, 07/14/2021, 06/21/2021 Influenza Adult (#1) 2025 Hepatitis A Vaccines Aged Out No long er eligible based on patient's age to complete this topic Meningococcal B Vaccine Aged Out No l onger eligible based on patient's age to complete this topic Meningococcal Vaccine Aged Out No zaida leo eligible based on patient's age to complete this topic RSV Immunizations Under 20 Months Aged Out No longer eligible b ased on patient's age to complete this topic Insurance [facility] MEDICAID C/O PROVIDER SERVICES [place] [id number] Care Teams Telephone Information Supervisor Relationship Specialty Start Date End Date Deshawn Hartley MD [address] [place] [id number] PCP - General FAMILY PRACTICE 12/05/23
--- OUTSIDE RECORDS SUMMARY | 2025-04-19 12:00 | XMS_ITS | Clinical Summary ---
Author Organization [facility] [employer] Address [address] [place] [address] Care Team Providers Care Chief Accountant Name Role Phone Unavailable Primary Care Provider Unavailabl e Source Comments [facility] [employer],non-owned Affiliates and Associated Physician Practices is amultiple site organization consisting of ambulatory clinics and hospital sitesin [place] and [place]. This disclosure is being madepursuant to the Care Everywhere program and may not contain all information available regarding this patient. Last updated 18.[facility] [employer] Allergies No known active allergies Medications * This document contains information received from the source organization and may not represent a complete record from that organization. * Be aware that medications may not be up to date on this document. Alwaysverify current medications with the patient. sertraline (Zoloft) 50 MG tabletIndicatio ns:Major Depressive Disorder Take 3 (three) tablets by mouth once daily Reasons: Major Depressive Disorder 90 tablet 4 Active buPROPion XL 24hr 450 MGIndications:M ajor Depressive Disorder Take 1 (one) tablet by mouth once daily Reasons: Major Depressive Disorder 30 tablet 4 Active hydrOXYzine HCl (Atarax) 25 MG tabletIndicatio ns:Anxiety Take 1 (one) tablet by mouth 3 times daily as needed (Anxiety) Reasons: Feeling Anxious 90 tablet 4 Active Active Problems Problem Noted Date Diagnosed Date Major depressive disorder, r ecurrent episode, severe with catatonia 12/30/2023 Social History Tobacco Use Types Packs/Day Years Used Date Smoking Tobacco: Never Smokeless Tobacco: Never Alcohol Use Standard Drinks/Week Comments Never 0 (1 standard drink = 0.6 oz pur e alcohol) AUDIT-C Answer Date Recorded Q1: How often do you have a drink containing alcohol? Never 12/30/2023 Q2: How many drinks containi ng alcohol do you have on a typical day when you are drinking? Patient does not drink Q3: How often do you have si x or more drinks on one occasion? Never 12/30/2023 Overall Financial Resource Strain (CARDIA) Answe r Date Recorded How hard is it for you to pa y for the very basics like food, housing, medical care, and heating? Not hard at all 12/30/2023 [facility] of Occupat ional Health - Occupational Stress Questionnaire Answer Date Recorded Do you feel stress - tense, restless, nervous, or anxious, or unable to sleep at night because your mind is troubled all the time - these days? Not at all 12/30/2023 Hunger Vital Sign Answer Date Recorded Within the past 12 months, y ou worried that your food would run out before you got the money to buy more. Never true 12/30/19 24 Within the past 12 months, t he food you bought just didn't last and you didn't have money to get more. Never true 12/30/2023 PRAPARE - Transportation Answer Date Re corded In the past 12 months, has l ack of transportation kept you from medical appointments or from getting medications? No 12/05 In the past 12 months, has l ack of transportation kept you from meetings, work, or from getting things needed for daily living? No 12/30/2023 Housing Stability Vital Sign Answer Milad e Recorded In the last 12 months, was t here a time when you were not able to pay the mortgage or rent on time? No 12/30/2023 In the last 12 months, how many places have you lived? 1 12/30/2023 In the last 12 months, was t here a time when you did not have a steady place to sleep or slept in a fdc (including now)? 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 Gender Identity Not on file Sexual Orientation Not on file Last Filed Vital Signs Vital Sign Reading Time Taken Comments Blood Pressure 114/80 01/11/2024 7:56 AM CDT Pulse 75 01/11/2024 7:56 AM CDT Temperature 36.9 C (98.4 F) 01/11/2024 7:56 AM CDT Respiratory Rate 17 01/11/2024 7:56 AM CDT Oxygen Saturation 96% 01/11/2024 7:56 AM CDT Inhaled Oxygen Concentration - - Weight 76.7 kg (169 lb) 12/30/2023 5:53 AM CDT Height 167.7 cm (5' 6.02) 12/30/2023 5:53 AM CD T Body Mass Index 27.26 12/30/2023 5:53 AM CDT Plan of Treatment Health Maintenance Due Date Last Done Comments COLOGUARD (AGES 45-75) - COL ON CA SCREENING 1968 COLON MONITORING 1968 COLONOSCOPY - COLON CA SCREENING 1968 CT COLONOGRAPHY - COLON CA SCREENING 1968 Colorectal Cancer Screening 1968 FIT - COLON CA SCREENING 1968 FLEX SIG - COLON CA SCREENING 1968 LIPID TESTING 1968 HIV SCREENING 11/25/1983 HEPATITIS C SCREENING 11/20/1986 DTAP/TDAP/TD VACCINES (1 - Tdap) 11/25/1987 HEPATITIS B VACCINE (1 of 3 - 19+ 3-dose series) 11/25/1987 PNEUMOCOCCAL VACCINE 50+ (1 of 1 - PCV) 2018 ZOSTER VACCINE (1 of 2) 2018 DEPRESSION SCREENING 07/06/2024 COVID-19 VACCINE (1 - 2023-2 5 season) 2025 INFLUENZA VACCINE (#1) 2025 HIB VACCINE Aged Out No longer eligi ble based on patient's age to complete this topic HPV VACCINE Aged Out No longer eligi ble based on patient's age to complete this topic MENINGOCOCCAL (Group B) VACC INE SHARED DECISION-MAKING Aged Out No longer eligibl e based on patient's age to complete this topic MENINGOCOCCAL GROUPS A/C/Y/W VACCINE Aged Out No longer eligible b ased on patient's age to complete this topic Insurance [facility] MEDICAID [facility] Advance Directives * Full Code (Latest Code Status on File) Date Activated Date Inactivated Comments 12/30/2023 6:04 AM 01/11/2024 2:40 PM
--- OUTSIDE RECORDS SUMMARY | 2025-04-19 12:00 | XMS_ITS | Clinical Summary ---
Author Organization [facility] Address [address] [place] [id number] Care Team Providers Care Administrator Social Welfare Name Role Phone Deshawn Hartley MD Primary Care Provider [phone] Allergies No known active allergies Medications lithium ER (LITHOBID) 300 mg CR tabletIndicatio ns:Bipolar Disorder,Depres po associated with Bipolar Disorder Take 2 tablets (600 mg total) by mouth 2 (two) times a day with meals 120 tablet 05/27/2024 Active ARIPiprazole (ABILIFY) 10 mg tabletIndicatio ns:Bipolar Disorder Take 2.5 tablets (25 mg total) by mouth daily 75 tablet 05/28/2024 Active buPROPion XL (WELLBUTRIN XL) 450 mg 24 hr tabletIndicatio ns:Depression associated with Bipolar Disorder Take 1 tablet (450 mg total) by mouth daily 30 tablet 05/28/2024 Active Active Problems Problem Noted Date Diagnosed Date Malnutrition 03/27/2024 Bipolar I disorder with depression 02/15/2024 Assessment & Plan (05/01/2024 3:50 PM CDT): Pt with low mood, low energy, weight loss, anhedonia, and trouble concentrating continuing since discharge from the hospital last week. History of ksenia. Symptoms consistent with Bipolar 1 Disorder, Current Episode Depressed. Patient received his 20th ECT treatment on 04/27. Bilateral at 100% charge. -consulted PT/OT: PT/OT saw the patient and rec home with family -Now encouraging nursing to get patient to shower some Mondays, Wednesdays, Fridays, as well as attend at least 1 activity therapy per day -still holding patient's lurasidone, no concrete changes noted in patient's clinical presentation. -Continue lithium 600 mg PO BID -increased duloxetine to 120mg PO daily for additional control of depressive symptoms -Abilify 20mg PO daily -Continue to encourage patient to eat and drink. And shower Assessment & Plan (03/19/2024 11:04 AM CDT): Pt with low mood, low energy, weight loss, anhedonia, and trouble concentrating continuing since discharge from the hospital last week. History of ksenia. Symptoms consistent with Bipolar 1 Disorder, Current Episode Depressed. Received ECT on 03-18-24. Tolerated well. No clinical improvement yet. -still holding patient's lurasidone, no concrete changes noted in patient's clinical presentation. -held patient's daily IVF, will CTM Vs and labs, as well as symptomatically to determine if patient needs further boluses. -Continue lithium 600 mg PO BID, -Continue duloxetine 60mg PO daily for additional control of depressive symptoms -ECT consult 03/03, started ECT Sunday 03/11, continue ECT MWF *Continuing lithium throughout ECT, will monitor for signs of neurotoxicity. Patient does not respond the to further multiple treatments of ECT team may consider lowering his lithium dose or holding it. -Participating in DNS-ECT Study, ok to wear Dreem Device and headband on nights before ECT (Thursday, Thursday, and ), does not need 1:1 sitter Assessment & Plan (05/30/2024 1:07 PM [employer] DRUM): Currently admitted for bipolar I disorder, current episode depressed characterized by low mood, low energy, weight loss, anhedonia, and trouble concentrating. Patient received his 20th ECT treatment on 04/27 (Bilateral 100%). Remains improved compared to when he came in, however remains somewhat withdrawn with sparse spontaneous speech, continues to have psychomotor slowing - unchanged from prior. Accepted to facility, will discharge today. No medication changes today. -Continue lithium 600 mg PO BID, lithium level 05/03 was 0.8 -Wellbutrin XL 450mg daily -Abilify 25mg PO daily -Continue holding home lurasidone. Assessment & Plan (03/13/2024 10:23 AM CDT): Pt with low mood, low energy, weight loss, anhedonia, and trouble concentrating continuing since discharge from the hospital last week. History of ksenia. Symptoms consistent with Bipolar 1 Disorder, Current Episode Depressed. Remains withdrawn with little interaction and verbal output. Eating meals. -Continue lithium 600 mg PO BID, and lurasidone 40 mg PO QAM given pt tolerated these medications during last admission -Check lithium level and BMP 03/12 -Continue duloxetine 60mg PO daily for additional control of depressive symptoms -ECT consult 03/03, started ECT Sunday 03/11, continue ECT MWF *Continuing lithium throughout ECT, will monitor for signs of neurotoxicity -IPAP consult 03/03 -Obtained collateral from pt's , Jessica -Participating in DNS-ECT Study, ok to wear Dreem Device and headband on nights before ECT (Thursday, Thursday, and ), does not need 1:1 sitter Assessment & Plan (02/22/2024 11:27 AM CDT): On interview today, patient endorsed improved depressive symptoms and demonstrated a less flat affect on exam. No adverse effects from medications. Weskan level indicated that an increase was necessary to achieve a therapeutic range, will increase to 600mg BID as a result. Patient stable and ready for discharge as they no longer require inpatient psychiatric care. Patient continues to not demonstrate SI. - Weskan 600mg BID, changed from 300mg qAM and 600mg qPM today - Serum level was .5 at 4 half lives, Cr. 1.05 on 02/21/24 - Lurasidone 40mg QHS (must be taken with at least 350 calorie meal, so with dinner in this case) - Agitation - Zyprexa 10mg PO PRN, with IM backup Prediabetes 02/15/2024 Assessment & Plan (02/15/2024 11:18 PM CDT): Recently elevated HgbA1c 5.9% in December 2023. Average blood glucose estimated to be 123. Hyperlipidemia Resolved Problems Problem Noted Date Diagnosed Date Resolved Date Abnormal urinalysis 03/08/2024 05/23/20 Assessment & Plan (03/30/2024 3:34 PM CDT): [RESOLVED] Abnormal UA 03/01 with nitrites, 2+ LE, bacteria, mucous, 21-50 WBC's, reflex to culture which was positive for coag negative staph, not S. lugdunensis or S. Saprophyticus. Repeat UA 03/08 with nitrites, 3+ LE, bacteria, mucous, >50 WBC's, 11-20 RBC's, trace glucose.Called infectious disease who advised positive urine culture likely contaminant, not recommending any antibiotics at this time, recommended urology referral if hematuria remains persistent, also recommended considering repeat GC and checking trichomonas which were ordered, all negative. Patient has not been reporting any urinary symptoms or otherwise pain, however it is assumed that patient has a poor historian, repeat CBC and CMP ordered, CMP within normal limits, however, CBC returned with a leukocytosis elevated at 17.2. Macrobid treatment course complete, urine culture continues to be contaminated with vinny, patient remains afebrile, asymptomatic, we will reassess if vital signs become unstable or he begins endorsing symptoms Assessment & Plan (03/11/2024 6:45 PM CDT): -Abnormal UA 03/01 with nitrites, 2+ LE, bacteria, mucous, 21-50 WBC's, reflex to culture which was positive for coag negative staph, not S. lugdunensis or S. saprophyticus -Repeat UA 03/08 with nitrites, 3+ LE, bacteria, mucous, >50 WBC's, 11-20 RBC's, trace glucose -No urinary symptoms, but pt is poor historian/unreliable -Afebrile -Called infectious disease who advised positive urine culture likely contaminant, not recommending any antibiotics at this time, recommended urology referral if hematuria remains persistent, also recommended considering repeat GC and checking trichomonas which were ordered, all negative Cognitive decline 03/03/2024 05/23/2024 Assessment & Plan (03/28/2024 11:36 AM CDT): Pt with progressive functional decline for the past ~4 years, worse over the last month, used to be able to hold a job, unable to now and with difficulty completing basic tasks such as laundry. Also history of sitting blankly staring for hours. Routine EEG ordered 03/03 - normal. 03/04 MoCA 21/30 indicating mild cognitive decline, score updated to reflect result by medical student -as above repeat MRI brain with without contrast shows no new findings (no acute findings intracranially) Assessment & Plan (03/07/2024 11:05 AM CDT): Pt with progressive functional decline for the past ~4 years, worse over the last month, used to be able to hold a job, unable to now and with difficulty completing basic tasks such as laundry. Also history of sitting blankly staring for hours. -Routine EEG ordered 03/03 - normal -03/04 MoCA 21/30 indicating mild cognitive decline, score updated to reflect result by medical student -Consider repeat MRI brain with and without contrast Catatonic schizophrenia 02/20/202402/04 Mass of parotid gland 02/15/20242023 Assessment & Plan (03/16/2024 1:47 PM CDT): Patient had incidental finding of a left parotid gland mass on prior MRI imaging (01/04/2024). 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 Basal cell adenoma vs. Basal cell carcinoma vs. Adenoid cystic carcinoma among others -ENT rec to follow up outpatient with an ENT attending after psych discharge Assessment & Plan (03/12/2024 10:17 AM CDT): Patient had incidental finding of a left parotid gland mass on prior MRI imaging (01/04/2024). Was supposed to follow up with ENT outpatient, had an appointment scheduled for the 28 of February however it does not appear he went to this appointment. 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 Basal cell adenoma vs. Basal cell carcinoma vs. Adenoid cystic carcinoma among others -Requesting MRI images from 01/04/2024 from [facility] -ENT currently deciding whether to work-up basaloid neoplam while pt is inpatient versus outpatient, need to follow up on this Assessment & Plan (02/15/2024 11:09 PM CDT): Of note, MRI brain w/ and w/o contrast at OSH on 01/04/2024 showed incidental finding of lobulated 2.5 cm mass to anterior aspect of left parotid gland (follow-up recommended) but was otherwise read as unremarkable. - PCP follow up and referral for ENT - Possible fine needle aspiration or ultrasound-guided core needle biopsy Immunizations Immunization Administration Dates Next Due Influenza, Trivalent, Preservative Free, Intramu scular 04/05/2024 Medical History Medical History Date Comments High cholesterol Bipolar 1 disorder (HCC) Hyperlipidemia Cognitive decline 03/03/2024 Mass of parotid gland 02/15/2024 Family History Medical History Relation Name Comments Mental illness Father's Sister Heart attack Maternal Grandfather Dementia Maternal Grandmother Diabetes type II Maternal Grandmother Mental illness Mother's Sister Relation Name Status Comments Father's Sister Maternal Grandfather Maternal Grandmother Mother's Sister Social History Tobacco Use Types Packs/Day Years Used Date Smoking Tobacco: Never Passive Smoke Exposure: Never Smokeless Tobacco: Never Tobacco Cessation:Counseling Given: No [facility] Utilities Answer Date Recorded In the past 12 months has e [employer], gas, oil, or water I Do Now I Don't threatened to shut off services in your home? No 03/02/2024 Humiliation, Afraid, Rape, and Kick questionnair e Answer Date Recorded Within the last year, have y ou been afraid of your partner or ex-partner? No 03/02/2024 Within the last year, have y ou been humiliated or emotionally abused in other ways by your partner or ex-partner? No Within the last year, have y ou been kicked, hit, slapped, or otherwise physically hurt by your partner or ex-partner? No 03/02/2024 Within the last year, have y ou been raped or forced to have any kind of sexual activity by your partner or ex-partner? No 03/02/2024 Social Connection and Isolation Panel Answer Date Recorded In a typical week, how many times do you talk on the phone with family, friends, or neighbors? More than three times a week 03/02/2024 How often do you get togethe r with friends or relatives? More than three times a week 03/02/2024 How often do you attend caro center or yazdanism services? More than 4 times per year 03/02/2024 Do you belong to any clubs o r organizations such as congregational groups, unions, fraternal or athletic groups, or school groups? Yes 03/02/2024 How often do you attend meet ings of the clubs or organizations you belong to? More than 4 times per year 03/02/2024 Are you , , di vorced, , never , or living with a partner? 03/02/2024 AUDIT-C Answer Date Recorded Q1: How often do you have a drink containing alcohol? Never 03/02/2024 Q2: How many drinks containi ng alcohol do you have on a typical day when you are drinking? Patient does not drink Q3: How often do you have si x or more drinks on one occasion? Never 03/02/2024 Overall Financial Resource Strain (CARDIA) Answe r Date Recorded How hard is it for you to pa y for the very basics like food, housing, medical care, and heating? Not very hard 03/02/2024 PHQ-2 Answer Date Recorded PHQ-2 Total Score 3 03/02/2024 [facility] of Occupat ional Health - Occupational Stress Questionnaire Answer Date Recorded Do you feel stress - tense, restless, nervous, or anxious, or unable to sleep at night because your mind is troubled all the time - these days? Not at all 03/02/2024 Exercise Vital Sign Answer Date Recorde d On average, how many days pe r week do you engage in moderate to strenuous exercise (like a brisk walk)? 0 days 03/02/2024 On average, how many minutes do you engage in exercise at this level? 0 min 03/02/2024 Hunger Vital Sign Answer Date Recorded Within the past 12 months, y ou worried that your food would run out before you got the money to buy more. Never true 03/02/20 24 Within the past 12 months, t he food you bought just didn't last and you didn't have money to get more. Never true 03/02/2024 PRAPARE - Transportation Answer Date Re corded In the past 12 months, has l ack of transportation kept you from medical appointments or from getting medications? No 02/04 In the past 12 months, has l ack of transportation kept you from meetings, work, or from getting things needed for daily living? No 03/02/2024 PHQ-9 Answer Date Recorded PHQ-9 Total Score 8 03/02/2024 Housing Stability Vital Sign Answer Milad e Recorded In the last 12 months, was t here a time when you were not able to pay the mortgage or rent on time? No 03/02/2024 In the past 12 months, how m any times have you moved where you were living? 0 03/02/2024 At any time in the past 12 m [facility], were you homeless or living in a detention (including now)? No 03/02/2024 Personal Safety Answer Date Recorded Have you ever been in or are you currently in a harmful physical or emotional relationship or is someone making you feel afraid or unsafe? Denies 03/02/2024 Education Answer Date Recorded What is the highest level of school you have completed or the highest degree you have received? 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 Gender Identity Not on file Sexual Orientation Not on file Obstetrics History Last Filed Vital Signs Vital Sign Reading Time Taken Comments Blood Pressure 98/68 05/30/2024 7:00 AM CURER ACID DRUM Pulse 84 05/30/2024 7:00 AM [employer] DRUM Temperature 36.8 C (98.3 F) 05/30/2024 7:00 AM [employer]ER AC[employer] DRUM Respiratory Rate 16 05/30/2024 7:00 AM [employer]ER ACID DRUM Oxygen Saturation 97% 05/30/2024 7:00 AM [employer]ER AC[employer] DRUM Inhaled Oxygen Concentration - - Weight 75.3 kg (166 lb) 05/08/2024 5:30 PM [employer]UM Height 170.2 cm (5' 7.01) 03/01/2024 9:19 PM CD T Body Mass Index 25.99 03/01/2024 9:19 PM CDT Plan of Treatment Health Maintenance Due Date Last Done Comments Colon Cancer Screening-Colonoscopy 1968 Hepatitis C Screening 1968 Prostate Cancer Screening-PSA 1968 DTaP/Tdap/Td Vaccine (1 - Tdap) 11/25/1979 Hepatitis B Screening 1986 Regular Well Visit/Exam 18-64 1986 Zoster Vaccine (1 of 2) 2018 Depression Screening 03/01/2025 03/01/2024, 03/01/2024 Covid-19 Vaccine (4 - 2024-2 6 season) 2025 01/28/2022, 07/14/2021, 06/21/2021 Influenza Vaccine (#1) 2025 04/05/2024 Pneumococcal vaccine <65 Aged Out No longer eligible based on patient's age to complete this topic Insurance [facility] Advance Directives For more information, please contact: [phone] * Full Code (Latest Code Status on File) Date Activated Date Inactivated Comments 04/27/2024 5:18 AM 04/27/2024 1:59 PM * Full Code Date Activated Date Inactivated Comments 04/25/2024 5:45 AM 04/27/2024 5:18 AM * Full Code Date Activated Date Inactivated Comments 04/22/2024 5:29 AM 04/25/2024 5:45 AM * Full Code Date Activated Date Inactivated Comments 04/20/2024 5:56 AM 04/22/2024 5:29 AM * Full Code Date Activated Date Inactivated Comments 04/18/2024 5:36 AM 04/20/2024 5:56 AM Care Teams Administrator Social Welfare Relationship Specialty Start Date End Date Deshawn Hartley MD [address] [place] [id number] PCP - General Emergency Medicine 12/04/23
--- NOTE | 2025-04-19 12:31 | ED_ITS ---
HPI - Psych General Chief Complaint: Psychiatric Symptoms Stated Complaint: OUT OF IT, SEES PSYCH, WANTS MED CLEARANCE Time Seen by Provider: 04/19/25 12:01 History of Present Illness HPI Narrative: 54-year-old male with history of schizophrenia bipolar depression presenting to the emergency department requesting psychiatric evaluation and treatment. Patient states that he was referred by his regular physician to seek psychiatric help as he is having borderline personality disorder issues and wishes to be hospitalized for psychiatric evaluation and treatment. Denies any thoughts of self-harm or suicidal/homicidal ideation. Denies any medical complaints such as fever, chills, headache, vision changes, nausea vomiting, chest pain, shortness a breath. Was otherwise in his normal state of health. Calm and cooperative in answering questions appropriately. Denies any substance use. Related Data Home Medications ?Medication ?Instructions ?Recorded ?Confirmed ?Last Taken ?Type aripiprazole 20 mg tablet mg 04/19/25 04/19/25 Histor y aripiprazole 5 mg tablet mg 04/19/25 04/19/25 Histor y lisdexamfetamine 50 mg capsule mg 04/19/25 04/19/25 H istory (Vyvanse) memantine 10 mg tablet mg 04/19/25 04/19/25 Histor y Allergies Allergy/AdvReac Type Severity Reaction Status Date / Time No Known Allergies Allergy Unknown Verified 04/19/25 10:18 Review of Systems 2 Review of Systems: As reviewed above in HPI PMFSH Past Medical History Medical History Parotid mass History of hearing loss Surgical History Surgical History No pertinent past surgical history Family History Family History Mother Family history of malignant neoplasm Grandparent Family history of coronary artery disease Social History Social History Smoking status: Former smoker Alcohol intake: never Substance use: never Substance use type: does not use Gender identity (if verbalized by the patient): Male Exam 2 Narrative: GENERAL: [Well-appearing, well-nourished, and in no acute distress.] HEAD: [Normocephalic, atraumatic.] EYES: [PERRLA and EOMI.] ENT: Nares clear, no rhinorrhea or epistaxis. Mucous membranes moist. NECK: Supple. CHEST: [Clear to auscultation. No respiratory distress.] HEART: [Regular rate and rhythm]. No murmur heard. [Normal peripheral pulses.] ABDOMEN: [Soft, nondistended], [nontender], [No rigidity or guarding] EXTREMITIES: Normal range of motion. [No edema.] SKIN: Warm, dry, no rash. NEURO: [No focal deficits]. Alert and oriented [x3.] PSYCH: [Normal mood and affect.] Course Vital Signs Vital signs: Vital Signs Temperature 36.6 C 04/19/25 10:24 Pulse Rate 76 04/19/25 10:24 Respiratory Rate 16 04/19/25 10:24 Blood Pressure 101/69 04/19/25 10:24 Pulse Oximetry 99 04/19/25 10:24 Temperature 36.6 C 04/19/25 21:26 Pulse Rate 79 04/19/25 21:26 Respiratory Rate 18 04/19/25 21:26 Blood Pressure 100/71 04/19/25 21: Pulse Oximetry 98 04/19/25 21:26 MDM - Psych MDM Narrative Medical decision making narrative: 54-year-old male with history of schizophrenia bipolar depression presenting to the emergency department requesting psychiatric evaluation and treatment. Patient states that he was referred by his regular physician to seek psychiatric help as he is having borderline personality disorder issues and wishes to be hospitalized for psychiatric evaluation and treatment. Denies any thoughts of self-harm or suicidal/homicidal ideation. Denies any medical complaints such as fever, chills, headache, vision changes, nausea vomiting, chest pain, shortness a breath. Was otherwise in his normal state of health. Calm and cooperative in answering questions appropriately. Denies any substance use. Patient has normal vital signs. Unremarkable examination from a physical standpoint with no medical complaints at this time aside from wanting psychiatric evaluation and help. Medical clearance laboratory studies were ordered including urine drug, toxicological screen, basic laboratory studies. Patient denies SI HI and is low risk. Patient's laboratory studies and urinalysis are unremarkable. Medically cleared for psychiatric evaluation at this time. Crisis team has evaluated the patient and are searching for placement options. Awaiting accepting facility at this time. Patient remains stable without any acute concerns and awaiting placement. Voluntary admission. Crisis team has attempted to have placement options and patient was declined from admission and transfer to several different facilities given apparent lack of any indication for inpatient hospitalization per their discussion and evaluation. Sounds like he would benefit from outpatient evaluations and follow up. No medical indications or medical problems for admission. Will be discharged at this time. Medical Records Attestation: I reviewed the patient's medical records. Lab Data Attestation: I reviewed the patient's lab results. 04/19/25 10:42 04/19/25 11:13 Labs: Lab Results 04/19/25 04/19/25 04/19/25 Range/Units 10:42 11:13 12:58 WBC 6.3 (4.5-10.0) K/mm3 RBC 6.10 (4.6-6.20) M/mm3 Hgb 16.3 (14.0-18.0) g/dL Hct 49.8 (42.0-52.0) % MCV 81.6 (80-100) fl MCH 26.7 (26-34) pg MCHC 32.7 (32-36) g/dl RDW 15.3 H (11.5-14.5) % Plt Count 267 (150-375) k/mm3 MPV 10.2 (7.4-10.4) fl Immature Gran % (Auto) 0.3 (0-0.5) % Neut % (Auto) 60.3 (45.5-73.1) % Lymph % (Auto) 30.3 (18.3-44.2) % [place] % (Auto) 8.0 (2.6-8.5) % Eos % (Auto) 0.8 (0-4.4) % Baso % (Auto) 0.3 (0.2-1.2) % Lymph # (Auto) 1.92 (0.9-3.2) K/mm3 [place] # (Auto) 0.5 (0.1-0.6) K/mm3 Eos # (Auto) 0.1 (0-0.3) K/mm3 Baso # (Auto) 0.0 (0.0-0.1) K/mm3 Abs Immat Gran (auto) 0.02 (0.00-0.031) K/mm3 Absolute Neuts (auto) 3.8 (1.3-6.7) K/mm3 Absolute Nucleated RBC 0.000 (0.0-0.012) K/mm3 Nucleated RBC % 0.0 (0.0-0.2) % Sodium 138 (137-145) mmol/L Potassium 4.1 (3.4-5.0) mmol/L Chloride 102 (98-107) mmol/L Carbon Dioxide 27 (22-30) mmol/L Anion Gap 9 (4-12) mmol/L BUN 15 D (9-20) mg/dL Creatinine 0.88 (0.7-1.3) mg/dL Estim Creat Clear Calc 77 ml/min Estimated GFR > 60 (59 - ) Glucose 110 (65-110) mg/dL Calcium 9.7 (8.4-10.2) mg/dL Total Bilirubin 1.0 (0.2-1.3) mg/dL AST 34 (17-59) U/L ALT 50 (6-50) U/L Alkaline Phosphatase 57 (38-126) U/L Total Protein 7.6 (6.3-8.2) g/dL Albumin 4.7 (3.5-5.1) g/dL TSH (Reflex) 0.775 (0.465-4.68) uIU/mL Urine Color Yellow (Yellow) Urine Appearance Turbid H (Clear) Urine pH 7.0 (5.0-9.0) Ur Specific [place] 1.018 (1.001-1.035) Urine Protein 1+ H (Negative) mg/dL Urine Glucose (UA) Negative (Negative) mg/dL Urine Ketones Negative (Negative) mg/dL Ur Blood (Man) Negative (Negative) Urine Nitrate Negative (Negative) Urine Bilirubin Negative (Negative) Urine Urobilinogen 1.0 (<2.0) mg/dL Leukocyte Esterase Rfl Negative (Negative) GE/UL Urine RBC 0-2 (0-2) /hpf Urine WBC 0-5 (0-3) /hpf Ur Squamous Epith Cells None seen (Few) /hpf Amorphous Sediment Moderate H (None) Urine Bacteria None seen /hpf Urine Casts 11-20 Salicylates < 1.0 L (2-20) mg/dL Urine Opiates Screen Negative (Negative) Urine Methadone Screen Negative (Negative) Acetaminophen < 10 L (10-30) ug/mL Ur Barbiturates Screen Negative (Negative) Ur Phencyclidine Scrn Negative (Negative) Ur Amphetamine Screen Negative (Negative) U Benzodiazepines Scrn Negative (Negative) Urine Cocaine Screen Negative (Negative) U Cannabinoids Screen Negative (Negative) Ethyl Alcohol < 10 (<10) mg/dL Influenza A (RT-PCR) Negative (Negative) Influenza B (RT-PCR) Negative (Negative) RSV (RT-PCR) Negative (Negative) SARS-CoV-2 RNA (RT-PCR) Negative (Negative) Discharge Plan Discharge Clinical Impression: Personality change Patient Disposition: Home Condition: Stable Instructions: Antibiotic Form Patient Language: Faroese Prescriptions: No Action aripiprazole 20 mg tablet aripiprazole 5 mg tablet memantine 10 mg tablet lisdexamfetamine [Vyvanse] 50 mg capsule Follow-up/Referrals: Wilmer Alonso DO [Primary Care Provider, Internal Medicine] Time of Disposition: 23:03
[2025-04-19 13:18] LABS: Add Urine Microscopic? YES; Appearance Urine Turbid (Clear); Glucose Urine UA Negative (Negative); Leukocyte Esterase Ur Negative LEU/UL (Negative); Nitrate Urine Negative (Negative); Specific Grav Ur 1.018 (1.001-1.035)
[2025-04-19 13:45] LABS: Cannabinoid Screen Urine Negative (Negative)
--- OUTSIDE RECORDS SUMMARY | 2025-04-19 13:58 | XMS_ITS | Clinical Summary ---
Author Organization [facility] Address [address] [place] [address] Care Team Providers Care Gyro Mechanic Name Role Phone Unavailable Primary Care Provider Unavailabl e Source Comments [facility],non-owned Affiliates and Associated Physician Practices is amultiple site organization consisting of ambulatory clinics and hospital sitesin [place], [place], [place] and [place]. This disclosure is being madepursuant to the Care Everywhere program and may not contain all information available regarding this patient. Last updated 18.[facility] Allergies No known active allergies Medications * [...] and heating? Not hard at all 12/30/2023 [facility] of Occupat ional Health - Occupational Stress [...] place to sleep or slept in a fpc (including now)? 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
--- OUTSIDE RECORDS SUMMARY | 2025-04-19 13:58 | XMS_ITS | Clinical Summary ---
Author Organization [facility] Address [address] [place] [id number] Care Team Providers Care Cognos Administrator Name Role Phone Deshawn Hartley MD Primary Care Provider [phone] Social History Tobacco Use Types Packs/Day Years [...] patient's age to complete this topic Insurance [facility] MEDICAID C/O PROVIDER SERVICES [place] [id number] Care Teams Cognos Administrator Relationship Specialty Start Date End Date Deshawn Hartley MD [address] [place] [id number] PCP - General FAMILY PRACTICE 12/05/23
--- OUTSIDE RECORDS SUMMARY | 2025-04-19 13:58 | XMS_ITS | Clinical Summary ---
Author Organization [facility] Address [address] [place] [id number] Care Team Providers Care Yarn Texture Machine Operator Name Role Phone Deshawn Hartley MD Primary Care Provider [phone] Allergies No known active allergies Medications lithium ER (LITHOBID) 300 mg CR tabletIndicatio ns:Bipolar Disorder,Depres op associated with Bipolar Disorder Take 2 tablets [...] sitter Assessment & Plan (05/30/2024 1:07 PM SACK DEPARTMENT SUPERVISOR): Currently admitted for bipolar I disorder, current [...] on exam. No adverse effects from medications. [place] level indicated that an increase was necessary to achieve a therapeutic range, will increase to 600mg BID as a result. Patient stable and ready for discharge as they no longer require inpatient psychiatric care. Patient continues to not demonstrate SI. - [place] 600mg BID, changed from 300mg qAM and [...] others -Requesting MRI images from 01/04/2024 from [facility] currently deciding whether to [...] Smokeless Tobacco: Never Tobacco Cessation:Counseling Given: No [facility] Utilities Answer Date Recorded In the past 12 months has e [place], gas, oil, or water [employer] threatened to shut off services in your [...] week 03/02/2024 How often do you attend [facility] or muslim services? More than 4 times per year 03/02/2024 Do you belong to any clubs o r organizations such as restoration groups, unions, fraternal or athletic groups, or [...] Date Recorded PHQ-2 Total Score 3 03/02/2024 [facility] [place] of Occupat ional Health - Occupational Stress [...] any time in the past 12 m [facility], were you homeless or living in a custodial (including now)? No 03/02/2024 Personal Safety Answer [...] Comments Blood Pressure 98/68 05/30/2024 7:00 AM SACK DEPARTMENT SUPERVISOR Pulse 84 05/30/2024 7:00 AM SACK DEPARTMENT SUPERVISOR Temperature 36.8 C (98.3 F) 05/30/2024 7:00 AM SACK DEPARTMENT SUPERVISOR Respiratory Rate 16 05/30/2024 7:00 AM SACK DEPARTMENT SUPERVISOR Oxygen Saturation 97% 05/30/2024 7:00 AM SACK DEPARTMENT SUPERVISOR Inhaled Oxygen Concentration - - Weight 75.3 kg (166 lb) 05/08/2024 5:30 PM SACK DEPARTMENT SUPERVISOR Height 170.2 cm (5' 7.01) 03/01/2024 9:19 [...] patient's age to complete this topic Insurance [facility] [employer] Advance Directives For more information, please contact: [phone] * Full Code (Latest Code Status on [...] 5:36 AM 04/20/2024 5:56 AM Care Teams Yarn Texture Machine Operator Relationship Specialty Start Date End Date Deshawn Hartley MD [address] [place] [id number] PCP - General Emergency Medicine 12/04/23
--- NOTE | 2025-04-19 15:30 | ECG_ITS ---
Test Date: 2025-04-19 15:36:03 Measurements Intervals [place] Rate: 72 P: 53 ME: 154 QRS: 76 QRSD: 104 T: 48 QT: 356 QTc: 392 Interpretive Statements SINUS RHYTHM BASELINE ARTIFACT- I, II, III, AVR, AVL, AVF NORMAL ECG No previous ECG available for comparison Electronically Signed On 04-19-2025 16:08:06 CDT by Vlad Rajan D.O.
--- NOTE | 2025-04-19 15:52 | PC.NURSE ---
Spoke with Rubén from [facility] and he states they do not take patient's insurance so they are not able to offer placement. He states he will call the patient's and inform her and give her some referrals of facilities that take their insurance
--- NOTE | 2025-04-19 16:20 | PC.NURSE ---
Spoke with Nilda at [facility] - explained that pt is declined at [facility] due to insurance. made aware. Nilda reaching out to for other options.
--- NOTE | 2025-04-19 16:53 | PC.NURSE ---
Patient paperwork faxed to [facility] after speaking with Jony from [facility]
--- NOTE | 2025-04-19 17:28 | PC.NURSE ---
[facility] declined patient at this time
--- NOTE | 2025-04-19 18:28 | PC.NURSE ---
[facility] [phone]
--- NOTE | 2025-04-19 19:31 | PC.NURSE ---
[facility] updated on [facility] declining and [facility] still pending.
--- NOTE | 2025-04-19 19:51 | PC.NURSE ---
This RN spoke with Roberta from [facility] and she verbally states we are still waiting on response to [facility]. She continues to state that [facility] is willing to take a look at his chart so she requested that we fax over pt chart. This RN just faxed over pt chart with voluntary admission form. Roberta continues to state she is going to continue to reach out to [facility] as well and will give us a call back with any updates.
--- NOTE | 2025-04-19 20:47 | PC.NURSE ---
This RN talked to Pamela at [facility] at 2046, this RN gave an update about pt situatuion and current orientation status. Pamela states he will give info to hospitalist and call back with an update
[2025-04-19 21:26] VITALS: BP 100/71; PULSE 79; RESP 18; TEMP 36.6; O2SAT 98
== END 2025-04-19 23:29 | disposition home or self-care (01) ==
PROVIDERS: Emergency Provider Student in an Organized Health Care Education/Training Program; PCP Internal Medicine
DX: F60.3 Borderline personality disorder (principal); Z11.52 Encounter for screening for COVID-19; F20.9 Schizophrenia, unspecified; F31.9 Bipolar disorder, unspecified; Z87.891 Personal history of nicotine dependence
CPT/HCPCS: 36415; 80053; 80143; 80179; 80307; 81001; 82077; 84443; 85025; 87637; 93005; 99284